=== PATIENT | female | born 1975 | race African-American/Black ===

== ENCOUNTER 2020-10-05 09:56 | Inpatient (IN) ==
[2020-10-05] MEDS ORDERED: SODIUM CHLORIDE 0.9% 1,000 ML IV STA (10:47)
[2020-10-05 11:52] LABS: Basophils # 0.1 10*3/uL (0.0-0.2); Basophils % 0.3 % (0.0-0.8); Hematocrit 29.8 VOL% (35.7-47.0); Hemoglobin 8.6 GM/DL (12.0-16.0); Lymphocytes # 1.3 10*3/uL (1.4-4.0); Lymphocytes % 6.5 % (21.3-54.2); Mean Corpuscular HGB Conc 28.9 GM/DL (32-36); Mean Corpuscular Volume 122.1 FL (87-102); Mean Platelet Volume 10.7 FL (9.6-12.0); Neutrophils % 86.2 % (38.7-73.9); Platelet Count 282 T/CUMM (130-400); Red Blood Count 2.44 MC/CUMM (3.8-5.5); Red Cell Distribution Width 12.7 % (9.3-17.3); White Blood Count 19.8 T/CUMM (4-12)
[2020-10-05 12:10] LABS: PT Patient Result 63.3 SECS (9.8-11.9); Partial Thromboplastin Time 39.7 SECS (23.9-33.8)
[2020-10-05 12:12] LABS: Band Neutrophils 5 % (0-10); Hypochromasia 1+; Lymphocytes 8 % (20-55); Segmented Neutrophils 83 % (50-85); Total Cells Counted 100
[2020-10-05 12:13] LABS: Burr Cells Few; Macrocytosis Slight
[2020-10-05 12:14] LABS: Platelet Estimate Normal
[2020-10-05 12:16] LABS: INR 6.5
[2020-10-05] MEDS ORDERED: GLUCAGON 1 MG VIAL IM PRN ×2 (12:19→12:28)
[2020-10-05] MEDS ORDERED: ONDANSETRON 4 MG/2 ML VIAL IV PRN (12:19)
[2020-10-05] MEDS ORDERED: DEXTROSE 50% 25 GM/50 ML VIAL IV PRN ×2 (12:19→17:51)
[2020-10-05 12:25] LABS: Glucose,Urine (UA) Negative (Negative); Ketones,Urine 25 mg/dL (Negative); Nitrite,Urine Negative (Negative); Protein,Urine >500 MG/DL; Urine Appearance Turbid (Clear); Urine Color Amber (Yellow); Urine Specific Gravity 1.025 (1.001-1.035)
[2020-10-05 12:26] LABS: Amorphous Crystals,Urine Moderate /HPF (Few); Bilirubin,Urine Negative (Negative); Blood, Urine Trace mg/dL (Negative); Squamous Epithelial Cell,Urine Many /HPF (0-10); Urine Urobilinogen 0.2 EU/DL (0.2-1.0)
[2020-10-05 12:27] LABS: Bacteria,Urine Rare /HPF (Few); Barbiturates Screen,Urine Negative (Negative); Benzodiazepines Screen,Urine Positive (Negative); Cannabinoid Screen,Urine Negative (Negative); Opiate Screen,Urine Negative (Negative); Phencyclidine Screen,Urine Negative (Negative)
[2020-10-05 12:38] LABS: Albumin 2.3 G/DL (3.4-5.0); Bilirubin,Total 5.1 MG/DL (0.2-1.0); Calcium 7.6 MG/DL (8.5-10.1); Osmolality,Calculated 278.8 MOS/KG (273-304); Potassium 4.1 MMOL/L (3.5-5.1); Total Protein 5.4 G/DL (6.4-8.3)
[2020-10-05] MEDS ORDERED: THIAMINE 200 MG/2 ML VIAL IV ONE (13:42)
[2020-10-05] MEDS ORDERED: PHYTONADIONE INJ 10 MG in SODIUM CHLORIDE 0.9% 50 ML IV ONE (13:45)
[2020-10-05 13:51] LABS: Hepatitis B Core IgM Quant 0.12 Index; Hepatitis B Surface Ag Quant < 0.10 Index; Hepatitis B Surface Ag Result Non-Reactive (NonReactive); Hepatitis C Virus Ab Quant 0.03 Index; Hepatitis C Virus Ab Result Non-Reactive (NonReactive)
[2020-10-05 14:07] LABS: ABG Base Excess -24.9 MMOL/L (-2.5-2.5); ABG HCO3 5.1 MMOL/L (20-26); ABG Oxygen Saturation 73.8 % (95-100); ABG PCO2 22.3 MM HG (35-48); ABG PO2 54.4 MM HG (80-95); ABG TCO2 5.7 MMOL/L (23-27)
[2020-10-05 14:10] LABS: ABG PH 6.974 (7.35-7.45)
[2020-10-05] MEDS: SODIUM CHLORIDE 0.9% 1,000 ML IV SCH ×2 (14:47→18:29)
[2020-10-05] MEDS ORDERED: LORazepam 2 MG/1 ML VIAL IV ONE (14:49)
[2020-10-05] MEDS ORDERED: LORazepam 2 MG/1 ML VIAL IV PRN (14:51)
[2020-10-05] MEDS: methylPREDNISolone SOD SUC 40 MG/1 ML VIAL IV SCH (15:11)
[2020-10-05] MEDS: PANTOPRAZOLE 40 MG VIAL IV SCH ×2 (15:12→21:38)
[2020-10-05] MEDS: SODIUM BICARB INJ 50 MEQ in SODIUM CHLORIDE 0.45% 1,000 ML IV SCH ×2 (15:43→18:46)
[2020-10-05] MEDS: FOLIC ACID INJ 1 MG in SYRINGE 1 EACH IV SCH (15:43)
[2020-10-05 16:22] LABS: ABG Base Excess -26.3 MMOL/L (-2.5-2.5); ABG HCO3 5.9 MMOL/L (20-26); ABG Oxygen Saturation 97.8 % (95-100); ABG TCO2 4.2 MMOL/L (23-27)
[2020-10-05 16:24] LABS: ABG PCO2 18.1 MM HG (35-48); ABG PH 6.965 (7.35-7.45)
[2020-10-05] MEDS ORDERED: SODIUM BICARBONATE 10 MEQ/10 ML SYRINGE IV ONE (16:26)
[2020-10-05] MEDS ORDERED: SODIUM BICARBONATE 50 MEQ/50 ML VIAL IV ONE ×5 (17:18→19:17)
[2020-10-05 18:10] VITALS: BP 108/58
[2020-10-05] MEDS ORDERED: MIDAZOLAM 2 MG/2 ML VIAL IV PRN (18:11)
[2020-10-05] MEDS: INSULIN LISPRO 100 UNIT/ML SUBCUT SCH ×2 (18:26→23:45)
[2020-10-05] MEDS: ENOXAPARIN 30 MG/0.3 ML SYRINGE SUBCUT SCH (18:27)
[2020-10-05 18:36] LABS: ABG Base Excess -24.8 MMOL/L (-2.5-2.5); ABG HCO3 5.8 MMOL/L (20-26); ABG Oxygen Saturation 99.4 % (95-100); ABG PCO2 27.6 MM HG (35-48); ABG PO2 419.7 MM HG (80-95); ABG TCO2 6.6 MMOL/L (23-27)
[2020-10-05 18:38] LABS: ABG PH 6.938 (7.35-7.45)
[2020-10-05] MEDS ORDERED: SUCCINYLCHOLINE 200 MG/10 ML VIAL IV ONE (18:39)
[2020-10-05] MEDS ORDERED: ETOMIDATE 20 MG/10 ML VIAL IV ONE (18:39)
[2020-10-05] MEDS: MIDAZOLAM 100 MG in SODIUM CHLORIDE 0.9% 80 ML IV PRN (18:58)
[2020-10-05] MEDS: NOREPINEPHRINE 8 MG in SODIUM CHLORIDE 0.9% 242 ML IV PRN (19:00)
[2020-10-05 19:07] LABS: PT Patient Result 70.4 SECS (9.8-11.9)
[2020-10-05] MEDS ORDERED: INFLUENZA VIRUS VACCINE 0.5 ML SYRINGE IM ONE (19:15)
[2020-10-05] MEDS ORDERED: PNEUMOCOCCAL VACCINE (13 VALENT) 0.5 ML SYRINGE IM ONE (19:15)
[2020-10-05 19:16] LABS: INR 7.3
[2020-10-05 19:18] LABS: Basophils % 0.1 % (0.0-0.8); Eosinophils % 0.1 % (0.00-10.9); Hematocrit 26.4 VOL% (35.7-47.0); Immature Granulocytes % 1.2 %; Immature Granulocytes Absolute 0.18 #; Lymphocytes # 1.3 10*3/uL (1.4-4.0); Lymphocytes % 8.1 % (21.3-54.2); Mean Corpuscular HGB Conc 28.4 GM/DL (32-36); Mean Corpuscular Volume 123.4 FL (87-102); Mean Platelet Volume 10.1 FL (9.6-12.0); Monocytes % 3.5 % (1.7-12.7); NRBC # 0.02 10*3/uL; Platelet Count 246 T/CUMM (130-400); Red Blood Count 2.14 MC/CUMM (3.8-5.5); Red Cell Distribution Width 13.2 % (9.3-17.3); White Blood Count 15.6 T/CUMM (4-12)
[2020-10-05 19:19] LABS: Hemoglobin 7.5 GM/DL (12.0-16.0)
[2020-10-05 19:24] LABS: Band Neutrophils 2 % (0-10); Lymphocytes 10 % (20-55); Segmented Neutrophils 88 % (50-85)
[2020-10-05 19:25] LABS: Hypochromasia Slight; Macrocytosis 1+; Platelet Estimate Normal
[2020-10-05 19:26] LABS: Total Cells Counted 100
[2020-10-05] MEDS: MEROPENEM 500 MG in SODIUM CHLORIDE 0.9% 100 ML IV SCH (21:34)
[2020-10-05] MEDS: LACTULOSE 20 GM/30 ML UDCUP PO SCH ×2 (21:34→23:45)
[2020-10-05] MEDS: fentaNYL INJ 1,250 MCG in SODIUM CHLORIDE 0.9% 225 ML IV PRN (22:05)
[2020-10-05] MEDS: DEXTROSE 50% 25 GM/50 ML VIAL IV PRN (23:46)
[2020-10-06] MEDS: NOREPINEPHRINE 8 MG in SODIUM CHLORIDE 0.9% 242 ML IV PRN ×4 (00:10→13:25)
[2020-10-06] MEDS: LACTULOSE 20 GM/30 ML UDCUP PO SCH ×7 (04:00→20:47)
[2020-10-06 04:17] LABS: Basophils % 0.4 % (0.0-0.8); Eosinophils # 0.1 10*3/uL (0.0-0.87); Eosinophils % 0.8 % (0.00-10.9); Hematocrit 28.1 VOL% (35.7-47.0); Hemoglobin 8.2 GM/DL (12.0-16.0); Immature Granulocytes % 5.8 %; Immature Granulocytes Absolute 0.61 #; Lymphocytes # 0.9 10*3/uL (1.4-4.0); Lymphocytes % 8.9 % (21.3-54.2); Mean Corpuscular HGB Conc 29.2 GM/DL (32-36); Mean Corpuscular Volume 121.1 FL (87-102); Mean Platelet Volume 10.3 FL (9.6-12.0); Monocytes % 2.9 % (1.7-12.7); Neutrophils % 81.2 % (38.7-73.9); Platelet Count 249 T/CUMM (130-400); Red Blood Count 2.32 MC/CUMM (3.8-5.5); Red Cell Distribution Width 13.2 % (9.3-17.3); White Blood Count 10.5 T/CUMM (4-12)
[2020-10-06 04:37] LABS: PT Patient Result 70.2 SECS (9.8-11.9); Partial Thromboplastin Time 56.1 SECS (23.9-33.8)
[2020-10-06 04:46] LABS: Calcium 6.9 MG/DL (8.5-10.1); Osmolality,Calculated 280.5 MOS/KG (273-304); Potassium 4.5 MMOL/L (3.5-5.1); Thyroid Stimulating Hormone 0.147 uIU/ml (0.358-3.74); Total Protein 5.2 G/DL (6.4-8.3)
[2020-10-06 04:47] LABS: INR 7.3
[2020-10-06 04:49] LABS: Band Neutrophils 3 % (0-10); Lymphocytes 6 % (20-55); Platelet Estimate Adequate; Segmented Neutrophils 86 % (50-85); Total Cells Counted 100
[2020-10-06 04:50] LABS: Hypochromasia 1+; Macrocytosis Slight
[2020-10-06 05:36] LABS: Allen Test Positive; Pt O2 Delivery Device Ventilator
[2020-10-06 05:43] LABS: ABG Base Excess -24.4 MMOL/L (-2.5-2.5); ABG HCO3 6.8 MMOL/L (20-26); ABG Oxygen Saturation 75.7 % (95-100); ABG PCO2 26.4 MM HG (35-48); ABG PO2 57.9 MM HG (80-95); ABG TCO2 6.1 MMOL/L (23-27)
[2020-10-06 05:45] LABS: ABG PH 6.967 (7.35-7.45)
[2020-10-06] MEDS: SODIUM BICARB INJ 50 MEQ in SODIUM CHLORIDE 0.45% 1,000 ML IV SCH ×3 (05:49→22:40)
[2020-10-06] MEDS: INSULIN LISPRO 100 UNIT/ML SUBCUT SCH ×3 (05:50→18:30)
[2020-10-06] MEDS: DEXTROSE 50% 25 GM/50 ML VIAL IV PRN ×3 (05:50→12:38)
[2020-10-06] MEDS ORDERED: SODIUM BICARBONATE 50 MEQ/50 ML VIAL IV ONE (05:56)
[2020-10-06] MEDS ORDERED: LACTATED RINGERS 1,000 ML IV ONE (06:35)
[2020-10-06] MEDS ORDERED: THIAMINE 200 MG/2 ML VIAL IV SCH (09:00)
[2020-10-06] MEDS: MEROPENEM 500 MG in SODIUM CHLORIDE 0.9% 100 ML IV SCH ×2 (10:10→20:47)
[2020-10-06] MEDS: fentaNYL INJ 1,250 MCG in SODIUM CHLORIDE 0.9% 225 ML IV PRN (10:23)
[2020-10-06] MEDS: FOLIC ACID INJ 1 MG in SYRINGE 1 EACH IV SCH (10:24)
[2020-10-06] MEDS: PANTOPRAZOLE 40 MG VIAL IV SCH ×2 (10:26→20:47)
[2020-10-06] MEDS: methylPREDNISolone SOD SUC 40 MG/1 ML VIAL IV SCH (10:30)
[2020-10-06 10:59] LABS: Hepatitis B Core IgM Quant 0.12 Index; Hepatitis B Surface Ag Quant < 0.10 Index; Hepatitis B Surface Ag Result Non-Reactive (NonReactive); Hepatitis C Virus Ab Quant < 0.02 Index; Hepatitis C Virus Ab Result Non-Reactive (NonReactive)
[2020-10-06] MEDS ORDERED: DOPamine 800 MG/250 ML PREMIX IV PRN (12:27)
[2020-10-06] MEDS: DEXTROSE 10% 1,000 ML IV SCH ×2 (12:39→21:02)
[2020-10-06] MEDS: HYDROCORTISONE 100 MG VIAL IV SCH ×2 (12:54→18:42)
[2020-10-06] MEDS: MIDAZOLAM 100 MG in SODIUM CHLORIDE 0.9% 80 ML IV PRN (13:54)
[2020-10-06] MEDS ORDERED: NOREPINEPHRINE 16 MG in SODIUM CHLORIDE 0.9% 234 ML IV PRN (15:22)
[2020-10-06] MEDS: ENOXAPARIN 30 MG/0.3 ML SYRINGE SUBCUT SCH (16:18)
[2020-10-06] MEDS: NOREPINEPHRINE 16 MG in SODIUM CHLORIDE 0.9% 234 ML IV PRN ×2 (17:11→23:18)
[2020-10-07] MEDS: HYDROCORTISONE 100 MG VIAL IV SCH
[2020-10-07] MEDS: INSULIN LISPRO 100 UNIT/ML SUBCUT SCH (00:42)
[2020-10-07] MEDS: LACTULOSE 20 GM/30 ML UDCUP PO SCH (01:00)
[2020-10-07] MEDS ORDERED: PHENYLEPHRINE DRIP 40 MG/250 ML PREMIX IV PRN (03:11)
[2020-10-07] MEDS ORDERED: PHENYLEPHRINE DRIP 40 MG/250 ML PREMIX IV ONE (03:13)
[2020-10-07] MEDS ORDERED: SODIUM BICARBONATE 50 MEQ/50 ML VIAL IV ONE (03:21)
[2020-10-07] MEDS ORDERED: DEXTROSE 50% 25 GM/50 ML SYRINGE IV ONE (03:21)
[2020-10-07] MEDS ORDERED: MAGNESIUM SULFATE 1 GM/2 ML VIAL ONE (03:21)
[2020-10-07] MEDS ORDERED: ATROPINE 1 MG/10 ML SYRINGE ONE ×2 (03:21→04:20)
[2020-10-07] MEDS ORDERED: CALCIUM CHLORIDE 1,000 MG/10 ML VIAL IV ONE (03:21)
[2020-10-07] MEDS ORDERED: EPINEPHrine 1 MG/10 ML SYRINGE ONE ×2 (03:21→04:20)
[2020-10-07] MEDS ORDERED: AMIODARONE 450 MG/9 ML VIAL IV ONE (03:28)
[2020-10-07 04:10] LABS: Basophils % 0.5 % (0.0-0.8); Eosinophils # 0.7 10*3/uL (0.0-0.87); Eosinophils % 8.4 % (0.00-10.9); Hematocrit 19.6 VOL% (35.7-47.0); Immature Granulocytes % 40.9 %; Immature Granulocytes Absolute 3.54 #; Lymphocytes # 1.9 10*3/uL (1.4-4.0); Lymphocytes % 21.4 % (21.3-54.2); Mean Corpuscular HGB Conc 28.6 GM/DL (32-36); Mean Corpuscular Volume 126.5 FL (87-102); Monocytes % 4.2 % (1.7-12.7); NRBC # 1.08 10*3/uL; Neutrophils % 24.6 % (38.7-73.9); Red Cell Distribution Width 14.4 % (9.3-17.3); White Blood Count 8.7 T/CUMM (4-12)
[2020-10-07 04:13] LABS: Platelet Count 121 T/CUMM (130-400); Red Blood Count 1.55 MC/CUMM (3.8-5.5)
[2020-10-07 04:15] LABS: Hemoglobin 5.6 GM/DL (12.0-16.0)
[2020-10-07] MEDS ORDERED: EPINEPHrine 1 MG/ML VIAL ONE (04:20)
[2020-10-07] MEDS ORDERED: SODIUM BICARBONATE 50 MEQ/50 ML SYRINGE IV ONE (04:20)
[2020-10-07] MEDS ORDERED: PHENYLEPHRINE INJ 160 MG in SODIUM CHLORIDE 0.9% 234 ML IV PRN (04:21)
[2020-10-07] MEDS ORDERED: SODIUM BICARB INJ 150 MEQ in DEXTROSE 5% 850 ML IV SCH (04:30)
[2020-10-07 04:34] LABS: Band Neutrophils 3 % (0-10); Lymphocytes 39 % (20-55); Myelocytes 2 %; Nucleated Red Blood Cells 31 (0-5); Promyelocytes 2 %; Segmented Neutrophils 40 % (50-85); Total Cells Counted 100
[2020-10-07 04:35] LABS: Hypochromasia 1+
[2020-10-07 04:36] LABS: Atypical Lymphocytes Few; Macrocytosis 1+
[2020-10-07 04:38] LABS: Platelet Estimate Adequate; Smudge Cells Few
[2020-10-07 05:20] LABS: Albumin 1.1 G/DL (3.4-5.0); Bilirubin,Total 3.9 MG/DL (0.2-1.0); Calcium 7.5 MG/DL (8.5-10.1); Osmolality,Calculated 284.3 MOS/KG (273-304); Total Protein 2.8 G/DL (6.4-8.3)
[2020-10-07 05:24] LABS: Potassium 6.1 MMOL/L (3.5-5.1)
== END 2020-10-07 04:41 | disposition expired | DRG 871 ==
LOC: N.ED 09:56 → N.EDINP 11:41 → SUATTDRO 11:41 → N.ICU 17:25
PROVIDERS: ADMIT Internal Medicine; ATTEND Internal Medicine